=== PATIENT | female | born 1985 | race Caucasian/White ===

== ENCOUNTER 2016-12-12 07:13 | Day surgery (SDC) | payer BC ==
[2016-12-12] VITALS (15 sets, daily range): BP systolic 106–124; BP diastolic 54–76; PULSE 66–90; RESP 16–39; Ht 157.5 cm; Wt 85.0 kg
[~2016-12-12] VITALS: Ht 157.5 cm; Wt 85.0 kg
[~2016-12-12 07:13] MED LIST: CEFAZOLIN 2 GM/50 ML (PMX) 50 ML IVPB ONE; DENIES; LACTATED RINGER'S 1,000 ML IV* SCH; PNV1TABL43 PO
[2016-12-12] MEDS ORDERED: PROPOFOL 20 ML ONE (08:25)
[2016-12-12] MEDS ORDERED: ROCURONIUM 50 MG INJ ONE (08:25)
[2016-12-12] MEDS ORDERED: ROPIVACAINE 0.2% 20 ML VIAL ONE (08:25)
[2016-12-12] MEDS ORDERED: MIDAZOLAM 1 MG/ML 2 ML INJ ONE (08:25)
[2016-12-12] MEDS ORDERED: FENTAnyl 50 MCG/ML VIAL ONE (08:25)
[2016-12-12] MEDS ORDERED: DIPHENHYDRAMINE 50 MG INJ IV PRN (08:30)
[2016-12-12] MEDS ORDERED: LABETALOL HCL 20MG INJ IV PRN (08:30)
[2016-12-12] MEDS ORDERED: morphine (1 MG/ML) 10ML SYRINGE IV PRN ×3 (08:30)
[2016-12-12] MEDS ORDERED: ONDANSETRON 4 MG INJ IV PRN (08:30)
[2016-12-12] MEDS ORDERED: hydrALAzine 20 MG INJ IV PRN (08:30)
[2016-12-12] MEDS ORDERED: FENTAnyl 50 MCG/ML VIAL IV PRN ×3 (08:30)
[2016-12-12] MEDS ORDERED: METOCLOPRAMIDE 10 MG INJ IV PRN (08:30)
[2016-12-12] MEDS ORDERED: MEPERIDINE 25 MG INJ IV PRN (08:30)
[2016-12-12] MEDS ORDERED: BUPIVACAINE 0.5%/EPI (SDV) 30 ML INJ ONE (09:47)
[2016-12-12] MEDS ORDERED: SUGAMMADEX SODIUM 200 MG/2 ML VIAL IV ONE (10:01)
[2016-12-12] MEDS ORDERED: KETOROLAC 30 MG INJ ONE (10:01)
[2016-12-12] MEDS ORDERED: DEXAMETHASONE 4 MG/ML 1 ML INJ ONE (10:01)
[2016-12-12] MEDS ORDERED: ONDANSETRON 4 MG INJ ONE (10:01)
[2016-12-12] MEDS ORDERED: METOCLOPRAMIDE 10 MG INJ ONE (10:01)
--- NOTE | 2016-12-12 10:13 | OPR ---
Date/Time of Note Date/Time of Note DATE: 12/12/16 TIME: 10:11 Operative Report Free Text/Dictation DATE OF OPERATION: 12/12/2016 PREOPERATIVE DIAGNOSIS: Patient desires permanent sterilization. She declined Essure. She desires laparoscopic tubal fulguration. POSTOPERATIVE DIAGNOSIS: Patient desires permanent sterilization. She declined Essure. She desires laparoscopic tubal fulguration. OPERATION PERFORMED: Laparoscopic fulguration and transection of bilateral tubes. SURGEON: Mylene Webster MD ESTIMATED BLOOD LOSS: Minimal. COMPLICATIONS: None. FINDINGS: Normal tubes, ovaries bilaterally. Normal uterus. CONSENT: Please see my preop H and P consent in the office for the consent process. DESCRIPTION OF PROCEDURE: She was taken to operating room and general anesthesia was induced. She was prepped and draped in the usual sterile fashion in dorsal lithotomy position. Surgical time-out was done. Anterior lip of the cervix was grasped using a single-tooth tenaculum, and a HUMI was inserted in normal fashion. The tenaculum was removed. There was no bleeding from the cervix. The patient already had a Low catheter as well. Gloves were changed. A 5 mm incision was developed inside the umbilicus. A blunt trocar was inserted in the normal fashion. Intraperitoneal position was confirmed using the laparoscope. Pneumoperitoneum was obtained. The patient was placed in Trendelenburg position. A second trocar was inserted under direct visualization of the laparoscope at the pubic hairline in the midline. A 5 cm mid ampullary region of the right tube was coagulated. Complete desiccation of the entire diameter of tube was visualized. The middle of the coagulated portion was cut. There was no bleeding. Same procedure was done on the contralateral side. All instruments removed under direct visualization of the laparoscope after pneumoperitoneum was released. There was no bleeding. Skin closed using 4-0 Monocryl. Then 10 mL 0.25% Marcaine with epinephrine was injected at the incision sites. HUMI was removed. There was no bleeding from the vagina. Patient tolerated the procedure well. Preoperative Diagnosis Patient desires permanent sterilization. She declined Essure. She desires laparoscopic tubal fulguration. Postoperative Diagnosis Patient desires permanent sterilization. She declined Essure. She desires laparoscopic tubal fulguration. Operation/Procedure Performed [facility] Surgeon see signature line Legal Biller none Anesthesia Type: general Estimated Blood Loss: minimal Transfusion none Specimen none Grafts/Implants none Tubes/Drains none Complications none Pt Condition Post Procedure: stable Disposition: PACU Procedure Description as above MYLENE WEBSTER MD Dec 12, 2016 10:13
[2016-12-12] MEDS ORDERED: MEPERIDINE 100 MG INJ ONE (10:18)
== END 2016-12-12 12:20 | disposition home or self-care (01) ==
LOC: SDS 07:13
PROVIDERS: ATTEND Specialist
DX: Z30.2 Encounter for sterilization (principal)
CPT/HCPCS: 58670; J1100; J1885; J2175; J2250; J2405; J2765; J2795; J3010; Z7512; Z7610